=== PATIENT | male | born 1940 | race Caucasian/White ===

== ENCOUNTER 2016-06-20 23:01 | Observation (INO) | payer OTHER, BC ==
[~2016-06-20] VITALS: Ht 172.7 cm; Wt 96.0 kg
[~2016-06-20 23:01] MED LIST: ACTOS45 MG PO; AMLODIPINE BESY10 MG PO; GLIMEPIRIDE4 MG PO; HYZAAR 100-21 TABLET PO; LANTUS 3 M100 UNITS/ SC; LIPITOR20 MG PO; LOPRESSOR50 MG PO; METFORMIN HCL500 M1 PO; PREVACID30 MG PO; ZESTRIL,PRINIVI10 MG PO
[2016-06-20 23:45] LABS: HEMATOCRIT 47.3 % (38.0-50.0); MCH 29.7 PG (29.0-34.0); MCV 89.9 FL (86-99); MEAN PLAT.VOLUME 10.5 uM^3 (9.0-12.4); PLATELET COUNT 156 K/uL (156-360); RBC DIS.WIDTH-CV 14.3 % (11.8-14.6); RBC DIS.WIDTH-SD 47.4 % (39-53); RED BLOOD COUNT 5.26 M/uL (4.00-5.50); WHITE BLOOD COUNT 3.8 K/uL (4.1-10.2)
[2016-06-21] LABS: CHLORIDE 98 mEq/L (99-109); POTASSIUM 3.9 mEq/L (3.7-5.4); SODIUM 135 mEq/L (136-147)
[2016-06-21 00:05] LABS: TROP-I INTERPRETATION NEGATIVE; TROPONIN-I < 0.01 ng/mL (0.0-0.30)
[2016-06-21 00:14] LABS: GLUCOSE 176 mg/dL (70-99)
[2016-06-21 00:15] LABS: ANION GAP 15 MEQ/L (2-14)
[2016-06-21 00:18] LABS: GFR ESTIMATE (CALCULATED) 33 mL/min/
[2016-06-21 00:19] LABS: UREA NITROGEN (BUN) 37 mg/dL (9-23)
[2016-06-21 00:20] LABS: INFLUENZA A VIRAL ANTIGEN NEGATIVE; INFLUENZA B VIRAL ANTIGEN POSITIVE
[2016-06-21] MEDS ORDERED: PROTONIX40 MG PO (01:10)
[2016-06-21] MEDS ORDERED: LANTUS 3 M100 UNITS1 SC (01:10)
[2016-06-21] MEDS ORDERED: PRADAXA150 MG PO (01:10)
[2016-06-21] MEDS ORDERED: INVOKANA300 MG PO (01:11)
[2016-06-21 02:35] VITALS: BP 129/69
[2016-06-21 06:00] LABS: POINT-OF-CARE METER ID UU13113725; POINT-OF-CARE USER ID 611181321
[2016-06-21] MEDS ORDERED: OSELTAMIVIR PHO30 MG PO (07:56)
[2016-06-21] MEDS ORDERED: AZITHROMYCIN500 M1 PO (07:56)
[2016-06-21 08:49] VITALS: BP 134/68
[2016-06-21 09:36] LABS: INTERNAL CONTROL VALID? YES
== END 2016-06-21 10:43 | disposition home or self-care (01) ==
LOC: EME 23:01 → 5EAST 06-21 01:49 → EDOF 06-21 01:49 → 5EAST 06-21 01:49
PROVIDERS: Emergency Medicine; Family Medicine
DX: J10.00 Influenza due to other identified influenza virus with unspecified type of pneumonia (principal); J18.9 Pneumonia, unspecified organism; N17.9 Acute kidney failure, unspecified; E87.2 Acidosis; E87.1 Hypo-osmolality and hyponatremia; E11.9 Type 2 diabetes mellitus without complications; I10 Essential (primary) hypertension; I25.10 Atherosclerotic heart disease of native coronary artery without angina pectoris; Z95.5 Presence of coronary angioplasty implant and graft; Z85.820 Personal history of malignant melanoma of skin
CPT/HCPCS: 71020; 80048; 82948; 83605; 84484; 85027; 87040; 87070; 87205; 87449; 87502; 87801; 93005; 94640; 99202; 99281; 99285; G0378; J0456; J0696; J7030; J7050

== ENCOUNTER → 2017-06-28 | Outpatient (CLI) | payer OTHER, BC ==
[~2017-06-28] MED LIST changes: +AZITHROMYCIN500 M1 PO; +INVOKANA300 MG PO; +LANTUS 3 M100 UNITS1 SC; +OSELTAMIVIR PHO30 MG PO; +PRADAXA150 MG PO; +PROTONIX40 MG PO
== END | disposition home or self-care (01) ==
LOC: NUC 07:28
DX: C61 Malignant neoplasm of prostate (principal)
CPT/HCPCS: 78306; A9503

== ENCOUNTER 2017-09-26 20:04 | Inpatient (IN) | payer OTHER, BC ==
[~2017-09-26] VITALS: Ht 172.7 cm; Wt 98.9 kg
[2017-09-26 21:49] LABS: HEMATOCRIT 36.5 % (38.0-50.0); HEMOGLOBIN 12.4 G/DL (12.5-16.6); MCH 31.4 PG (29.0-34.0); MCV 92.4 FL (86-99); PLATELET COUNT 190 K/uL (156-360); RBC DIS.WIDTH-CV 18.7 % (11.8-14.6); RBC DIS.WIDTH-SD 63.7 % (39-53); RED BLOOD COUNT 3.95 M/uL (4.00-5.50); WHITE BLOOD COUNT 5.2 K/uL (4.1-10.2)
[2017-09-26 22:08] LABS: CHLORIDE 108 MEQ/L (99-109); POTASSIUM 4.5 MEQ/L (3.7-5.4); SODIUM 140 MEQ/L (136-147)
[2017-09-26 22:14] LABS: CREATININE 1.4 MG/DL (0.6-1.3); GFR ESTIMATE (CALCULATED) 53 mL/min/ (58.99-99999); GLUCOSE 143 mg/dL (70-99); UREA NITROGEN (BUN) 20 mg/dL (9-23)
[2017-09-26 22:18] LABS: TROP-I INTERPRETATION NEGATIVE; TROPONIN-I < 0.01 ng/mL (0.0-0.30)
[2017-09-27] MEDS ORDERED: FLOMAX0.4 MG PO ×2 (06:01→12:39)
[2017-09-27 06:04] VITALS: BP 166/78
[2017-09-27] MEDS ORDERED: IMODIUM A-D2 M2 PO (06:04)
[2017-09-27 07:15] VITALS: BP 128/66
[2017-09-27 07:33] LABS: TROP-I INTERPRETATION NEGATIVE; TROPONIN-I 0.01 ng/mL (0.0-0.30)
[2017-09-27 07:37] LABS: ALBUMIN 3.5 G/DL (3.2-4.8); ALKALINE PHOSPHATASE 66 IU/L (3-129); ALT (GPT) 10 IU/L (3-49); AST (GOT) 15 IU/L (2-34); DIRECT BILIRUBIN 0.2 mg/dL (0.0-0.3); HDL CHOLESTEROL 41 MG/DL (Desirable>=40); LDL CHOLESTEROL 44 mg/dL (Desirable<100); MAGNESIUM 1.6 mg/dl (1.3-2.7); NON-HDL CHOLESTEROL 57 mg/dL (Desirable<160); TOTAL BILIRUBIN 0.8 MG/DL (0.0-1.0); TOTAL CHOLESTEROL 98 mg/dL (Desirable<200); TOTAL PROTEIN 5.8 G/DL (6.4-8.3); TRIGLYCERIDES 66 MG/DL (Normal: <150)
[2017-09-27 08:08] LABS: THYROTROPIN (TSH) 1.5 MIU/L (0.4-5.5)
[2017-09-27 09:29] LABS: D-DIMER ELISA < 150.00 ng/mLDDU (<230)
[2017-09-27 11:26] VITALS: BP 142/71
[2017-09-27] MEDS ORDERED: INVOKANA300 MG PO (12:43)
[2017-09-27 12:53] LABS: TROP-I INTERPRETATION NEGATIVE; TROPONIN-I < 0.01 ng/mL (0.0-0.30)
[2017-09-27 15:25] LABS: APPEARANCE CLEAR ((CLEAR)); BILIRUBIN NEGATIVE; BLOOD SMALL; COLOR STRAW ((YELLOW)); GLUCOSE (STRIP) >=500; KETONES NEGATIVE; LEUKOCYTES NEGATIVE; NITRITE NEGATIVE; PROTEIN (STRIP) NEGATIVE; UROBILINOGEN 0.2 MG/DL (0.2-1.0)
[2017-09-27 15:50] LABS: BACTERIA NONE SEEN /HPF; EPITHELIAL CELLS NONE SEEN /HPF; HYALINE CASTS 0-5 /LPF; MUCUS TRACE /LPF; RED BLOOD CELLS 0-5 /HPF (0-5); WHITE BLOOD CELLS 0-5 /HPF (0-5)
[2017-09-27 15:59] LABS: UR CREATININE CONCENTRATION 39.1 MG/DL
[2017-09-27 16:06] VITALS: BP 126/70
[2017-09-27 19:43] VITALS: BP 124/75
[2017-09-27 23:27] VITALS: BP 134/76
[2017-09-28 04:44] VITALS: BP 136/72
[2017-09-28 05:57] LABS: BASOPHIL (%) 0.2 % (0-1); EOSINOPHIL COUNT 0.1 K/uL (0-0.3); HEMATOCRIT 37.7 % (38.0-50.0); HEMOGLOBIN 12.4 G/DL (12.5-16.6); IMMATURE GRANULOCYTE (%) 0.4 % (0.0-0.7); LYMPHOCYTE (%) 7.3 % (15-42); LYMPHOCYTE COUNT 0.4 K/uL (1.0-2.8); MCH 30.1 PG (29.0-34.0); MCHC 32.9 G/DL (30.0-36.0); MCV 91.5 FL (86-99); MONOCYTE COUNT 0.8 K/uL (0-0.8); NEUTROPHIL (%) 73.1 % (45-76); NEUTROPHIL COUNT 3.6 K/uL (1.8-6.4); PLATELET COUNT 195 K/uL (156-360); RBC DIS.WIDTH-CV 18.2 % (11.8-14.6); RBC DIS.WIDTH-SD 61.5 % (39-53); RED BLOOD COUNT 4.12 M/uL (4.00-5.50); WHITE BLOOD COUNT 4.9 K/uL (4.1-10.2)
[2017-09-28 06:22] LABS: ALBUMIN 3.7 G/DL (3.2-4.8); ALKALINE PHOSPHATASE 68 IU/L (3-129); ALT (GPT) 13 IU/L (3-49); AST (GOT) 18 IU/L (2-34); CHLORIDE 100 MEQ/L (99-109); CREATININE 1.3 MG/DL (0.6-1.3); GFR ESTIMATE (CALCULATED) 57 mL/min/ (58.99-99999); MAGNESIUM 1.7 mg/dl (1.3-2.7); PHOSPHORUS 4.1 mg/dL (2.5-4.9); SODIUM 140 MEQ/L (136-147); TOTAL BILIRUBIN 0.9 MG/DL (0.0-1.0); TOTAL PROTEIN 6.3 G/DL (6.4-8.3); UREA NITROGEN (BUN) 26 mg/dL (9-23)
[2017-09-28 06:23] LABS: GLUCOSE 81 mg/dL (70-99); POTASSIUM 3.5 MEQ/L (3.7-5.4)
[2017-09-28 09:00] VITALS: BP 142/78
[2017-09-28 11:44] VITALS: BP 114/57
[2017-09-28] MEDS ORDERED: HYDRALAZINE HCL50 MG PO (12:21)
[2017-09-28] MEDS ORDERED: LASIX20 MG PO (12:21)
[2017-09-28] MEDS ORDERED: ASPIR-LOW81 MG PO (12:23)
[2017-09-28] MEDS ORDERED: POTASSIUM CHLO10 ME4 PO (12:26)
== END 2017-09-28 14:12 | disposition home or self-care (01) | DRG 292 ==
LOC: EME 20:04 → EDOF 09-27 04:42 → ENRESERV 09-27 04:44 → CANRESERV 09-27 04:44 → ENRESERV 09-27 04:47 → 4EAST 09-27 05:52
PROVIDERS: Family Medicine; Hospitalist; Internal Medicine Nephrology
DX: I13.0 Hypertensive heart and chronic kidney disease with heart failure and stage 1 through stage 4 chronic kidney disease, or unspecified chronic kidney disease (principal); C90.00 Multiple myeloma not having achieved remission; I27.20 Pulmonary hypertension, unspecified; I50.9 Heart failure, unspecified; I48.2 Chronic atrial fibrillation; N18.3 Chronic kidney disease, stage 3 (moderate); C61 Malignant neoplasm of prostate; E11.22 Type 2 diabetes mellitus with diabetic chronic kidney disease; E11.649 Type 2 diabetes mellitus with hypoglycemia without coma; E78.5 Hyperlipidemia, unspecified; E87.6 Hypokalemia; I25.10 Atherosclerotic heart disease of native coronary artery without angina pectoris; E66.9 Obesity, unspecified; R09.02 Hypoxemia; K21.9 Gastro-esophageal reflux disease without esophagitis; Z68.34 Body mass index [BMI] 34.0-34.9, adult; Z85.820 Personal history of malignant melanoma of skin; I25.2 Old myocardial infarction; Z92.21 Personal history of antineoplastic chemotherapy; Z92.3 Personal history of irradiation; Z95.1 Presence of aortocoronary bypass graft; Z95.5 Presence of coronary angioplasty implant and graft; Z85.828 Personal history of other malignant neoplasm of skin; Z79.82 Long term (current) use of aspirin; Z79.4 Long term (current) use of insulin; Z79.01 Long term (current) use of anticoagulants; Z82.49 Family history of ischemic heart disease and other diseases of the circulatory system
CPT/HCPCS: 71046; 76770; 78227; 80048; 80053; 80061; 80076; 81003; 82570; 82948; 83735; 83880; 84100; 84156; 84443; 84484; 85025; 85027; 85379; 87493; 93005; 93306; 99281; 99285; A9537; J1644; J1940; J2805